=== PATIENT | female | born 2000 | race African-American/Black ===

== ENCOUNTER 2018-12-17 21:49 | Day surgery (SDC) | payer OTHER ==
[2018-12-17 22:23] VITALS: BMI 33.2
[2018-12-17] MEDS ORDERED: hydrALAZINE 20 MG/ML VIAL SLOW IVP PRN (23:52)
--- NOTE | 2018-12-18 00:13 | PRG ---
DATE OF SERVICE: 12/17/2018 PRIMARY OB: Dr. Abdullahi Deng. CHIEF COMPLAINT: Contractions. HISTORY OF PRESENT ILLNESS: The patient is a 18-year-old G2, P1 female with an intrauterine at 36 weeks and 6 days, who is presenting to Labor and Delivery with uterine contractions that she reports about every 15 minutes. The patient admits to having intercourse earlier in the day. She also reports she had some mucousy discharge. She denies any recent fever, cough, headache, chest pain, shortness of breath, nausea, vomiting. She has had some couple days of diarrhea. Denies constipation. Denies hip problems, knee problems, muscle weakness. Denies vaginal bleeding. Does report this mucousy discharge. Denies urinary urgency or frequency. PAST MEDICAL HISTORY: Negative. PAST SURGICAL HISTORY: Negative. ALLERGIES: NO KNOWN DRUG ALLERGIES. MEDICATIONS: vitamins and iron. SOCIAL HISTORY: Denies drug, alcohol, tobacco use. OB LABS: Unavailable at time of dictation. REVIEW OF SYSTEMS: Per HPI. PHYSICAL EXAMINATION: VITAL SIGNS: Blood pressure is 122/77, heart rate is 77, respiratory rate 18, temperature 97.8. GENERAL: She appears to be in no acute distress. She is alert, oriented, cooperative, pleasant to interact with. HEAD: Normocephalic, atraumatic. LUNGS: Clear to auscultation bilaterally. HEART: Regular rate and rhythm. ABDOMEN: Soft, gravid, nontender. EXTREMITIES: Nontender, nonedematous. : Cervical exam per nursing staff is closed, thick, and high. heart tracing performed for evaluation of abdominal discomforts shows baseline in the 130s with moderate long-term variability, positive 15 x 15 accelerations, no decelerations. Tocometer showing some irritability with occasional contractions. ASSESSMENT AND PLAN: The patient is a 18-year-old G2, P1 female with an intrauterine at 36 weeks and 6 days, presenting to evaluate for labor. The patient has a closed cervix is having irregular contractions that she is reporting about every 15 minutes. The patient does live in [place]. She has been given the option to stay for observation for few hours versus discharge home with the recommendation that given her a closed cervix status going home is a definitely reasonable choice. The patient and the family would like to go home. She has been given term labor precautions. Fetus has a category 1 tracing and reactive NST. Job ID: [id number]
== END 2018-12-17 23:29 | disposition home or self-care (01) ==
LOC: L&D/OP 21:49
PROVIDERS: ATTEND Family Medicine
DX: O47.03 False labor before 37 completed weeks of gestation, third trimester (principal); Z3A.36 36 weeks gestation of pregnancy
CPT/HCPCS: 99282

== ENCOUNTER 2018-12-31 19:30 | Inpatient (IN) | payer OTHER ==
[2019-01-01 03:17] VITALS: BMI 33.9
[2019-01-01] MEDS ORDERED: Lidocaine 1% (PF) 30 ML VIAL SC PRN (03:38)
[2019-01-01] MEDS ORDERED: HYDROcodone/Acetaminophen 5/325 mg Tablet PO PRN ×3 (03:38→14:49)
[2019-01-01] MEDS ORDERED: Ondansetron PF 4 MG/2 ML Vial IVP PRN ×2 (03:38→14:49)
[2019-01-01] MEDS ORDERED: Ibuprofen 800 MG TAB PO PRN (03:38)
[2019-01-01] MEDS ORDERED: Penicillin G Potassium 5 MILL.UNITS in Sodium Chloride 0.9% 100 ML IVPB SCH (03:38)
[2019-01-01] MEDS ORDERED: Carboprost 250 MCG/ML AMP IM PRN (03:38)
[2019-01-01] MEDS ORDERED: hydrALAZINE 20 MG/ML VIAL SLOW IVP PRN ×2 (03:38→14:49)
[2019-01-01] MEDS ORDERED: Promethazine HCl 25 MG/ML VIAL IM PRN (03:38)
[2019-01-01] MEDS ORDERED: Diphenoxylate HCl/Atropine Tablet PO PRN (03:38)
[2019-01-01] MEDS ORDERED: NS w/ Oxytocin 10 units 500 ML IV SCH ×2 (03:38)
[2019-01-01] MEDS ORDERED: Acetaminophen/Codeine 30-300mg Tablet PO PRN (03:38)
[2019-01-01] MEDS ORDERED: Methylergonovine 0.2 MG/ML VIAL IM PRN (03:38)
[2019-01-01] MEDS: Misoprostol 100 MCG TAB PO SCH ×3 (04:28→16:42)
[2019-01-01 06:49] LABS: Hemoglobin 11.8 g/dL (12.0-16.0); Mean Corpuscular HGB CONC 32.6 g/dL (32.0-36.0); Mean Corpuscular Hemoglobin 29.2 pg (25.0-35.0); Mean Corpuscular Volume 89.5 fL (78.0-98.0); Platelet Count 195 thou/uL (130-400); RBC Distribution Width 11.7 % (11.5-14.5); Red Blood Cell (RBC) Count 4.04 mill/uL (4.00-5.20); White Blood Cell (WBC) Count 7.7 thou/uL (4.8-10.8)
[2019-01-01 07:26] LABS: HBSAg Index 0.27 S/CO (0-0.99); Hep B Surf Ag Non-Reactive S/CO (NonReactive); Syphilis Antibody Nonreactive (Nonreactive); Syphilis Antibody Index 0.05 S/CO (<1.00 Non-Reactive)
[2019-01-01] MEDS: Butorphanol Tartrate 1 MG/ML VIAL SLOW IVP PRN ×2 (08:58→10:02)
[2019-01-01] MEDS: Penicillin G 2.5 MILL.units 2.5 MILL.UNITS in Premix Bag 1 BAG IVPB SCH ×2 (09:50→17:11)
[2019-01-01] MEDS: NS / Oxytocin 40 units/1000ml 1,000 ML IV PRN ×2 (11:01→14:18)
[2019-01-01] MEDS ORDERED: Ibuprofen 800 MG TAB PO SCH (14:00)
[2019-01-01] MEDS: Lactated Ringer's 1,000 ML IV SCH (14:18)
[2019-01-01] MEDS ORDERED: Benzocaine-Menthol 82.5 ML CAN TOP PRN (14:49)
[2019-01-01] MEDS ORDERED: Adacel (T-DAP) 0.5 ML SYRINGE IM ONE (14:49)
[2019-01-01] MEDS ORDERED: Milk Of Magnesia 30 ML UDCUP PO PRN (14:49)
[2019-01-01] MEDS ORDERED: Preparation H Ointment 28 GM TUBE PR PRN (14:49)
[2019-01-01] MEDS ORDERED: Bisacodyl 10 MG SUPP PR PRN (14:49)
[2019-01-01] MEDS ORDERED: NS / Oxytocin 40 units/1000ml 1,000 ML IV SCH (14:49)
[2019-01-01] MEDS ORDERED: diphenhydrAMINE 25 MG CAP PO PRN (14:49)
[2019-01-01] MEDS: Ferrous Sulfate 325 MG TAB PO SCH (17:12)
[2019-01-01] MEDS: Docusate Calcium (SURFAK) 240 MG CAP PO SCH (20:30)
[2019-01-01] MEDS: Ibuprofen 800 MG TAB PO SCH (20:30)
[2019-01-02] MEDS: Ibuprofen 800 MG TAB PO SCH ×2 (04:20→12:47)
[2019-01-02 06:05] LABS: Hemoglobin 10.4 g/dL (12.0-16.0); Mean Corpuscular HGB CONC 33.6 g/dL (32.0-36.0); Mean Corpuscular Hemoglobin 29.4 pg (25.0-35.0); Mean Corpuscular Volume 87.4 fL (78.0-98.0); Platelet Count 184 thou/uL (130-400); RBC Distribution Width 11.6 % (11.5-14.5); Red Blood Cell (RBC) Count 3.54 mill/uL (4.00-5.20); White Blood Cell (WBC) Count 10.7 thou/uL (4.8-10.8)
[2019-01-02] MEDS: Docusate Calcium (SURFAK) 240 MG CAP PO SCH (08:26)
[2019-01-02] MEDS: Ferrous Sulfate 325 MG TAB PO SCH (08:26)
[2019-01-02 08:43] VITALS: BP 136/79; TEMP 98.5
[2019-01-02] MEDS ORDERED: Prenatal Vitamin 1 TAB PO SCH (09:00)
== END 2019-01-02 14:21 | disposition home or self-care (01) | DRG 807 ==
LOC: L&D 01-01 02:57 → 3SE 01-01 15:12
PROVIDERS: ADMIT Family Medicine; ATTEND Family Medicine
PROC: 10E0XZZ Delivery of Products of Conception, External Approach (ICD-10-PCS; principal; 2019-01-01)
PROC: 10907ZC Drainage of Amniotic Fluid, Therapeutic from Products of Conception, Via Natural or Artificial Opening (ICD-10-PCS; 2019-01-01)
DX: O24.429 Gestational diabetes mellitus in childbirth, unspecified control (principal); Z37.0 Single live birth; O99.824 Streptococcus B carrier state complicating childbirth; Z3A.39 39 weeks gestation of pregnancy
CPT/HCPCS: 36415; 85027; 86780; 86850; 86900; 86901; 87340; J0595; J2001; J2540; J3490